=== PATIENT | male | born 1965 | race Caucasian/White ===

== ENCOUNTER 2018-09-24 08:25 | Outpatient (REF) | payer OTHER, SELFPAY ==
[2018-09-24 12:57] LABS: ALT 32 U/L (12-78); AST 23 U/L (15-37); Albumin 4.1 g/dL (3.4-5.0); Alkaline Phosphatase 50 U/L (46-116); Anion Gap 10.4 mmol/L (3-11); BUN 9 mg/dL (7-18); Bilirubin, Total 0.5 mg/dL (0.2-1.0); CO2 29.6 mmol/L (21.0-32.0); CREATININE 0.89 mg/dL (0.70-1.30); Calcium 9.6 mg/dL (8.5-10.1); Chloride 99 mmol/L (98-107); Cholesterol 266 mg/dL (50-200); Glucose 90 mg/dL (70-100); HDL Cholesterol 60 mg/dL (40-60); LDL CHOLESTEROL 176 mg/dL (<100); Potassium 4.3 mmol/L (3.5-5.1); Sodium 139 mmol/L (136-145); Total Protein 7.5 g/dL (6.4-8.2); Triglyceride 172 mg/dL (30-150)
[2018-09-24 13:01] LABS: COMMENT (LAB VIEW ONLY) 68.83 mg/dL; Microalb ug/mg Crea 405.1 ug/mg Cr
== END 2018-09-24 08:45 ==
LOC: NCHCN 08:25
PROVIDERS: PCP Internal Medicine; Visit Provider Family Medicine
DX: I10 Essential (primary) hypertension (principal); R80.9 Proteinuria, unspecified; Z13.220 Encounter for screening for lipoid disorders
CPT/HCPCS: 80053; 80061; 83721; 82043; 82570

== ENCOUNTER 2019-02-10 14:51 | Outpatient (CLI) | payer OTHER, SELFPAY ==
--- NOTE | 2019-02-10 14:44 | DI.RAD_ITS ---
SYMPTOMS/DIAGNOSIS: F/U FRACTURE RIGHT SHOULDER: A fracture of the greater tuberosity of the right humerus is demonstrated. No prior images were extant at the time of this interpretation.
== END 2019-02-10 15:11 ==
PROVIDERS: PCP Internal Medicine; Visit Provider Orthopaedic Surgery
DX: S42.251A Displaced fracture of greater tuberosity of right humerus, initial encounter for closed fracture (principal)
CPT/HCPCS: 73030

== ENCOUNTER 2019-02-24 14:47 | Outpatient (CLI) | payer OTHER, SELFPAY ==
--- NOTE | 2019-02-24 14:43 | DI.RAD_ITS ---
SYMPTOMS/DIAGNOSIS: F/U FRACTURE RIGHT SHOULDER: Two views were obtained and show a previously described fracture of the greater tuberosity of the humerus with no gross interval change in alignment of the fracture fragments in comparison with examination of February 10.
== END 2019-02-24 15:07 ==
PROVIDERS: PCP Internal Medicine; Visit Provider Orthopaedic Surgery
DX: S42.91XD Fracture of right shoulder girdle, part unspecified, subsequent encounter for fracture with routine healing (principal)
CPT/HCPCS: 73030

== ENCOUNTER 2020-05-11 17:39 | Outpatient (REF) | payer OTHER, SELFPAY ==
[2020-05-11 21:39] LABS: ALT 74 U/L (16-63); AST 48 U/L (15-37); Albumin 4.4 g/dL (3.4-5.0); Alkaline Phosphatase 76 U/L (46-116); Anion Gap 7.5 mmol/L (3-11); BUN 14 mg/dL (7-18); Bilirubin, Total 0.6 mg/dL (0.2-1.0); CO2 29.5 mmol/L (21.0-32.0); CREATININE 0.99 mg/dL (0.70-1.30); Calcium 9.9 mg/dL (8.5-10.1); Chloride 99 mmol/L (98-107); Glucose 167 mg/dL (74-106); Potassium 4.5 mmol/L (3.5-5.1); Sodium 136 mmol/L (136-145); Total Protein 7.5 g/dL (6.4-8.2)
[2020-05-11 22:15] LABS: PROTEIN 94.8 mg/dL
[2020-05-11 22:16] LABS: COMMENT (LAB VIEW ONLY) 102.37 mg/dL; Prot/Crea Ur Ratio 0.92
== END 2020-05-11 17:59 ==
LOC: NCHCN 17:39
PROVIDERS: PCP Internal Medicine; Visit Provider Family Medicine
DX: R80.9 Proteinuria, unspecified (principal)
CPT/HCPCS: 80053; 82565; 84156

== ENCOUNTER 2020-06-26 07:43 | Outpatient (CLI) | payer OTHER, SELFPAY ==
[2020-06-27 14:37] LABS: COVID-19 RT-PCR Result NEGATIVE (Negative)
== END 2020-06-26 08:03 ==
PROVIDERS: PCP Family Medicine; Visit Provider Surgery
DX: Z01.818 Encounter for other preprocedural examination (principal)
CPT/HCPCS: U0003

== ENCOUNTER 2020-06-29 06:17 | Day surgery (SDC) | payer OTHER, SELFPAY ==
[2020-06-29 06:31] VITALS: BP 150/86; PULSE 66; RESP 16; TEMP 36.4; O2SAT 100
[2020-06-29] MEDS: Lactated Ringers 1,000 ML 80 ML IV (06:50)
--- NOTE | 2020-06-29 07:16 | W.PM.DSUDISC ---
Discharge Plan Disposition Patient Disposition: HOME Condition: Good Discharge Details Reason For Visit: Colonoscopy with polypectomy Attending Provider: Tiffanie Falcon Primary Care Provider: Kelle Rojo Home Meds and New Rx's Prescriptions: Continued albuterol sulfate 0.63 MG/3 ML solution for nebulization 0.63 mg Inhalation PRN RF: 0 lisinopril 10 MG tablet 10 mg PO DAILY RF: 0 Discontinued polyethylene glycol 3350 17 gram/dose powder 238 g PO ONCE Qty: 238 RF: 0 bisacodyl [Dulcolax (bisacodyl)] 5 mg tablet,delayed release (DR/EC) 5 mg PO ONCE Qty: 4 RF: 0 Discharge Instructions Additional Instructions: Findings: A large polyp was removed from the sigmoid colon. My office will contact you with biopsy results. Follow up: Plan for a follow up colonoscopy in 3-5 years depending on biopsy results. Please call if you develop: fevers >101.5 Nausea or Vomiting Abdominal pain that is not transient Bleeding DAY SURGERY UNIT POST COLONOSCOPY INSTRUCTIONS 1. Because there will be medication in your system for the next 24 hours, you may feel a little sleepy. Your coordination will be affected. Therefore: a. Do not drive or operate dangerous equipment for 24 hours. b. Do not drink alcohol beverages for 24 hours (not even beer). c. Plan to go home and rest for the day. 2. Generally there are no restrictions on your activity after a day or so has gone by, but you may feel a bit fatigued for a few days. 3 After you arrive home you may have a light meal and return to a normal diet as you can tolerate it without feeling sick to your stomach. 4. After surgery, you may feel pain or discomfort. This should be only transient, but if it persists please contact your doctor. 5. If there are any questions regarding the findings of your procedure, please feel free to contact your doctor. 6. If you are unable to contact your doctor with a problem, contact the hospital at [phone]. 7. Continue all your regular medications unless directed otherwise. I understand the above instructions and have no questions. Signature of Patient or Responsible Adult Escort Date/Time Name of Responsible Adult Escort Signature of Nurse Date/Time Activity:: Activity as Tolerated Diet:: As Tolerated Discharge Orders Discharge Orders: Discharge Order (Routine); Ordered 06/29/20 Ordered By: Tiffanie Falcon DS: Diagnosis Discharge Diagnosis (1) Colon polyps: Status: Acute
--- NOTE | 2020-06-29 07:17 | W.COLOREPORT ---
Date of service: 06/29/20 Time of Service: 08:00 Colonoscopy Report Date of procedure: 06/29/20 Pre-op diagnosis general: Screening Post-op diagnosis procedure note: other (Colon polyps) Procedure: Colonoscopy with snare polypectomy Surgeon: Tiffanie Falcon Anesthesia proc note operative: MAC Indications: This 54 year old man presents for his first screening colonoscopy. He has no symptoms or FH colon cancer. Procedure Description: The patient was placed in the left German position. Propofol was titrated to sedation. Digital rectal examination revealed no abnormalities. The scope was advanced to the cecum without difficulty. The ileocecal valve and appendiceal orifice were clearly identified. The prep was good. The scope was slowly withdrawn over the course of greater than 6 minutes with no abnormalities seen in the ascending, transverse, descending colon. In the sigmoid colon at 30 cm a greater than 1cm polyp on a thick, short stalk was removed with hot snare polypectomy. A hemostatic clip was applied to the stalk as a precaution. In the rectum a hyperplastic appearing polyp was removed with the snare but not retrieved for pathology. The rectum was normal on retroflexed view. The patient tolerated the procedure well and was stable to recovery. Plan for routine colonoscopy in 3-5 years depending on biopsy results.
--- NOTE | 2020-06-29 07:44 | BOWEL_PTH ---
PATIENT: Brice Harry LOC: [facility] U#:[id number] AGE/SX: 54/M ROOM: RE06/29/[address]: Tiffanie Falcon MD : 1965 BED: DIS: 06/29/2020 SPEC #: [id number] RECD: 06/29/20 10:29 STATUS: KAMRON REQ #: [id number] MARGUERITE: 06/29/20 07:[address]: Tiffanie Falcon DEPT: Surgical Specimen RECD BY: Neelam Grey ENTERED: 06/29/20 10:32 SP TYPE: Bowel OTHR DR: Kelle Rojo Tissues: 1 - BOWEL RESECTION(OTHER) Procedures: GROSS AND MICRO LEVEL 4 Comments: [id number]
[2020-06-29 08:16] VITALS: BP 121/75; PULSE 62; RESP 18; TEMP 36.2; O2SAT 100
== END 2020-06-29 08:38 | disposition home or self-care (01) ==
PROVIDERS: PCP Family Medicine; Visit Provider Surgery
PROC: 0DJD8ZZ Inspection of Lower Intestinal Tract, Via Natural or Artificial Opening Endoscopic (ICD-10-PCS; CPT 45378; principal; 2020-06-29 07:30)
DX: Z12.11 Encounter for screening for malignant neoplasm of colon (principal); D12.5 Benign neoplasm of sigmoid colon; K62.1 Rectal polyp; I10 Essential (primary) hypertension
CPT/HCPCS: 45385; 88305; 88307; J2704

== ENCOUNTER 2021-10-13 12:11 | Emergency (ER) | payer OTHER, SELFPAY ==
--- NOTE | 2021-10-13 12:15 | DI.RAD_ITS ---
Exam(s) XR FOOT LT COMPLETE EXAM: XR FOOT LT COMPLETE CLINICAL HISTORY: Great toe soccer injury. TECHNIQUE: 2D digital imaging was performed. COMPARISON: No exams were available for comparison FINDINGS: Three views reveal no evidence of acute fracture nor diastasis of the Lisfranc joint. Advanced degen erative changes are noted at the great toe metatarsophalangeal joint. Other MTP joints appear unrema rkable. Moderate degenerative changes are noted at the interphalangeal joint of the great toe. Ther e is a 3 x 3 millimeter exostoses off the lateral aspect of the middle phalanx of the 2nd toe. Simil ar finding also seen off the lateral aspect of the distal phalanx of the 4th toe. No osseous tarsal coalition. No erosions nor osseous lesions. IMPRESSION: Degenerative changes in the 1st metatarsophalangeal joint as well as the interphalangeal joint of the great toe. Lateral benign small exostoses are noted off the middle phalanx of the 2nd toe and distal phalanx of the 4th toe as described above. No fracture evident. DATA REPOSITORY: RADIATION DOSE DELIVERED:
[2021-10-13 12:21] VITALS: BP 159/78; PULSE 46; RESP 16; TEMP 36.4; O2SAT 96
--- NOTE | 2021-10-13 12:30 | W.ED.GENAD ---
Discharge Plan Disposition Patient Disposition: HOME Condition: Stable Discharge Details Clinical Impression: Injury of toe on left foot Primary Care Provider: Kelle Rojo ED Provider: Horace Kat Home Meds and New Rx's Prescriptions: Continued albuterol sulfate 0.63 MG/3 ML solution for nebulization 0.63 mg Inhalation PRN RF: 0 lisinopril 10 MG tablet 10 mg PO DAILY RF: 0 Discharge Instructions Additional Instructions: X-ray reveals degenerative changes of your great toe but no evidence of acute fracture. Wear postop shoe as needed, advance activity as tolerated. [id number] Tylenol and/or Motrin as directed for discomfort. Rest, elevate, cool and/or warm compresses every 2 hours for 20 minutes. If symptoms are to persist I do recommend reaching out your primary care provider to discuss outpatient reevaluation Medical Decision Making 56-year-old gentleman presents with a left toe injury he sustained last week. Clinically diffuse mild swelling and discomfort but no obvious deformity. Will obtain x-ray X-ray reveals degenerative changes but no acute fracture Discussed x-ray findings with patient. Discussed conservative measures of [id number] Tylenol and/or Motrin and will place into a postop shoe. We discussed resting, elevating, cool compresses. If conservative measures not helping will follow up with his primary care provider next week. This documentation was generated using [employer] dictation system, please disregard any oddities of phrase or misspellings. Standard discharge and return precautions Medical Records Medical records reviewed: Yes I reviewed the patient's medical records. HPI General Mode of arrival: ambulatory. Date/Time Provider Initiated Documentation: 10/13/21 12:12. Limitations to Documentation: no limitations. Information obtained by: patient. HPI Narrative: This is a 56-year-old gentleman, past medical history of hypertension, presenting to the ER for evaluation of a left great toe injury. Patient states that last week while playing soccer he accidentally kicked another player. Had some discomfort at the time but was able to play for a few more minutes. Upon waking the next day he had increased pain, now severe with ambulation or bearing weight. Denies any other injury, numbness, tingling, weakness. No additional concerns or complaints at this time. Has not taken any medications for his symptoms Related Data Home Medications Medication Instructions Recorded Confirmed albuterol sulfate 0.63 mg INHALATION PRN 04/06/17 10/13/21 lisinopril 10 mg PO DAILY tab-cap 04/06/17 10/13/21 Allergies Allergy/AdvReac Type Severity Reaction Status Date / Time No Known Allergies Allergy Unverified 10/13/21 12:24 cats Allergy Uncoded 10/13/21 12:24 General Stated Complaint: Orthopedic FLOWER: 4 Review of Systems Constitutional Constitutional: Denies weakness Musculoskeletal Musculoskeletal: Denies deformity, Reports arthralgias, Denies numbness, Reports stiffness and Denies tingling Integumentary/Breasts Skin/Breast: Denies rash Neurologic Neurologic: Denies numbness, Denies tingling and Denies weakness PFS Active Problem List Tubulovillous adenoma (Acute ~06/2020) Colon polyps (Acute) Fracture of right shoulder girdle with routine healing (Acute) Medical History Allergy to cats HTN (hypertension) Surgical History Nasal fracture repair Vasectomy Family History Mother Achalasia Father Essential hypertension Social History Smoking/Tobacco Use Status: Never Smoking risk assessment performed?: Yes Alcohol Intake: current Alcohol Intake frequency: 3 or more drinks per day Alcohol type: wine and hard liquor Drug use: Rarely Substance use type: marijuana Do you feel safe at home: Yes Do you feel safe in your relationship?: Yes Exam Const General: cooperative, healthy appearing, comfortable and no acute distress Orientation: alert and awake [facility] Head: normal to inspection, normocephalic and atraumatic Eyes General: appearance normal, both eyes and all related structures Conjunctivae: conjunctivae normal Neck Neck: normal visual inspection, trachea midline and supple Resp Effort & Inspection: normal respiratory effort and able to speak in complete sentences Cardio Rate: regular rate Rhythm: regular rhythm Skin General skin exam: no rashes or lesions noted Neuro General: patient alert, patient awake, moves all extremities and no focal motor deficits Cognition: normal cognition Speech: speech normal Gait: antalgic Sensory Exam: no sensory deficits noted Extrem General: full ROM and capillary refill normal Ankle/foot/toe images: 1. Diffuse mild discomfort and swelling. Skin is intact. No erythema or ecchymosis. Normal capillary refill and dorsalis pedal pulse Psych Appearance: grossly normal Mental Status: mental status grossly normal Course Vital Signs Vital signs: Vital Signs Temperature 36.4 C L 10/13/21 12:21 Pulse 46 L 10/13/21 12:21 Respiratory Rate 16 10/13/21 12:21 Blood Pressure 159/78 H 10/13/21 12:21 Pulse Oximetry 96 10/13/21 12:21 Temperature 36.4 C L 10/13/21 12:21 Temperature Source Temporal Artery Scan 10/13/21 12:21 Pulse 46 L 10/13/21 12:21 Respiratory Rate 16 10/13/21 12:21 Blood Pressure 159/78 H 10/13/21 12:21 Blood Pressure Position Sitting 10/13/21 12:21 Pulse Oximetry 96 10/13/21 12:21 Oxygen Delivery Method Room Air 10/13/21 12:21 Oxygen Flow Rate 0 10/13/21 12:21 Pain Level 5 10/13/21 12:21
--- NOTE | 2021-10-13 13:20 | DI.VRAD_ITS ---
PROCEDURE INFORMATION: Exam: XR Left Foot Exam date and time: 10/13/2021 12:25 PM Age: 56 years old Clinical indication: Injury or trauma; Other: Great toe soccer injury; Blunt trauma; Foot; Left TECHNIQUE: Imaging protocol: XR Left foot. Views: 3 or more views. COMPARISON: No relevant prior studies available. FINDINGS: Bones/joints: Degenerative changes in the 1st metatarsal-phalangeal joint and IP joint.. There is no evidence of acute fracture.There is no evidence of malalignment or dislocation. Soft tissues: Normal. IMPRESSION: 1. Degenerative changes in the 1st metatarsal-phalangeal joint and IP joint.. 2. There is no evidence of acute fracture.There is no evidence of malalignment or dislocation. Dictated and Authenticated by: Wally Pérez MD. Ordering:RASHMI Vu MD
== END 2021-10-13 13:50 | disposition home or self-care (01) ==
PROVIDERS: Emergency Provider Physician Assistant; PCP Family Medicine
DX: S99.822A Other specified injuries of left foot, initial encounter (principal); Y93.66 Activity, soccer; W22.8XXA Striking against or struck by other objects, initial encounter
CPT/HCPCS: 99283; 73630

== ENCOUNTER 2022-07-30 21:28 | Outpatient (REF) | payer OTHER, SELFPAY ==
[2022-07-30 19:53] LABS: Anion Gap 10.6 mmol/L (3-11); BUN 12 mg/dL (7-18); CO2 26.4 mmol/L (21.0-32.0); Calcium 9.6 mg/dL (8.5-10.1); Chloride 100 mmol/L (98-107); Estimated GFR 88.88 (mL/min/1.73m2); Glucose 83 mg/dL (74-106); Potassium 4.4 mmol/L (3.5-5.1); Sodium 137 mmol/L (136-145); Uric Acid 8.1 mg/dL (3.5-7.2)
[2022-07-30 20:04] LABS: Abs Immature Grans 0.01 10^3/uL (0.0-0.06); Absolute Basophil Count 0.05 10^3/uL (0.0-0.2); Absolute Eosinophil Count 0.14 10^3/uL (0.0-0.7); Absolute Lymphocyte Count 1.39 10^3/uL (1.2-3.4); Absolute Monocyte Count 0.56 10^3/uL (0.1-0.8); Absolute Neutrophil Count 4.07 10^3/uL (1.2-6.7); Basophils % 0.8; Eosinophils % 2.3; HCT 46.1 % (40.0-50.0); Immature Grans % 0.2; Lymphocytes % 22.3; MCHC 34.7 % (32.0-36.0); MCV 101 fL (80-95); MPV 10.2 fL (8.0-11.0); Neutrophils % 65.4; Platelet Count 241 10^3/uL (130-400); RBC 4.57 10^6/uL (4.36-5.78); RDW 11.5 % (11.8-14.1); WBC 6.22 10^3/uL (4.4-10.8)
== END 2022-07-30 21:29 | disposition home or self-care (01) ==
LOC: NCHCN 21:28
PROVIDERS: PCP Family Medicine; Visit Provider Family Medicine
DX: I10 Essential (primary) hypertension (principal); M25.59 Pain in other specified joint
CPT/HCPCS: 80048; 84550; 85025

== ENCOUNTER → 2022-08-18 02:47 | Outpatient (CLI) | payer OTHER, SELFPAY ==
--- NOTE | 2022-08-18 | DI.RAD_ITS ---
Exam(s) XR FOOT RT COMPLETE EXAM: XR FOOT RT COMPLETE CLINICAL HISTORY: ARTHRALGIAS,M25.50. TECHNIQUE: 2D digital imaging was performed. Three views. COMPARISON: CR,XR XR FOOT LT COMPLETE from 10/13/2021 FINDINGS: BONES: No acute fracture is present. No bony destructive lesion is seen. Ossicle adjacent to lateral aspect of calcaneus. JOINTS: No dislocation present. Mild degenerative changes 1st MTP joint. SOFT TISSUE: Normal. IMPRESSION: Mild degenerative changes 1st MTP joint. DATA REPOSITORY: RADIATION DOSE DELIVERED:
== END ==
PROVIDERS: PCP Family Medicine; Visit Provider Family Medicine
DX: M25.571 Pain in right ankle and joints of right foot (principal); M19.071 Primary osteoarthritis, right ankle and foot
CPT/HCPCS: 73630

== ENCOUNTER 2022-10-07 13:25 | Emergency (ER) | payer OTHER, SELFPAY ==
[2022-10-07 13:29] VITALS: BP 169/77; PULSE 46; RESP 18; TEMP 36.8; O2SAT 97
--- NOTE | 2022-10-07 14:02 | ED.GENADUL_ITS ---
Discharge Plan Disposition Patient Disposition: Home Condition: Improving Discharge Details Clinical Impression: Acute lumbar myofascial strain Primary Care Provider: Kelle Rojo ED Provider: Ludwig Toro Home Meds and New Rx's Prescriptions: New methocarbamol 750 mg tablet 750 mg PO TID PRNQty: 20 0RF diazepam [Valium] 2 mg tablet 2 mg PO QHS PRN (Reason: muscle spasm) Qty: 5 0RF Continued albuterol 90 mcg/actuation aerosol inhalation lisinopril 10 MG tablet 10 mg PO DAILY Discharge Instructions Instructions: Muscle Strain (ED) Additional Instructions: May apply heat to area to increase blood flow to area. May apply ice to reduce discomfort and may alternate the 2 modalities. Liberally hydrate with small, frequent sips of fluids. May gently massage or foam roll area. Tylenol and ibuprofen as needed for pain. I recommend he take 600 mg of ibuprofen every 8 hours for the next 2 to 3 days time. Take this medication with food. Remove Lidoderm patch in 12 hours time, further patches are available [id number]. May use methocarbamol 750 to 1500 mg every 6-8 hours during the daytime as needed for discomfort. May use Valium 2 mg at bedtime for comfort and muscle relaxation. No driving, working with heavy equipment, or use of alcohol with this medication. Return if you develop a rash, bloody urine, or any other acute concern. Stand Alone Forms: Physical Therapy Referral Medical Decision Making This is a 57-year-old male who felt a tweak in his back while twisting and moving large pieces of wood this morning. This afternoon he felt increased right lower lumbar paraspinous pain that improved with movement and warming it up. He has reproducible spasm in the right lumbar region, likely quadratus lumborum strain. Discussed with him applying Lidoderm patch, [id number] muscle relaxants and referral to physical therapy. He will liberally hydrate at home. He return for any acute concern. Sign Out No HPI General Mode of arrival: ambulatory . Date/Time Provider Initiated Documentation: 10/07/22 13:48 . Limitations to Documentation: no limitations . Information obtained by: patient . History of Present Illness 57 year old M presents to the emergency department with the chief complaint of Right low back pain, described as moderate, Quality is described as dull and constant, and is localized to the back and right. Patient reports no radiation. Patient started experiencing this hour(s) and it has been constant. Rest improves symptom(s), Movement worsens symptoms . Patient notes no other symptoms.. Patient did receive the following treatments prior to arrival, other (Ibuprofen and back brace) Related Data Home Medications Medication Instructions Recorded Confirmed lisinopril 10 mg tablet 10 mg PO DAILY 04/06/17 10/07/22 albuterol 90 mcg/actuation aerosol mcg inhalation 07/31/22 08/04/22 inhaler diazepam 2 mg tablet (Valium) 2 mg PO QHS PRN muscle spasm #5 10/07/22 tabs methocarbamol 750 mg tablet 750 mg PO TID PRN #20 tabs 10/07/22 Previous Rx's Medication Instructions Recorded diazepam 2 mg tablet (Valium) 2 mg PO QHS PRN muscle spasm #5 10/07/22 tabs methocarbamol 750 mg tablet 750 mg PO TID PRN #20 tabs 10/07/22 Allergies Allergy/AdvReac Type Severity Reaction Status Date / Time No Known Allergies Allergy Unverified 07/31/22 15:27 cats Allergy Uncoded 10/07/22 13:32 General Stated Complaint: Nk/Back Pain FLOWER: 4 Review of Systems Narrative: No trouble with urination, no chest pain. Worse with movement. 6 systems were reviewed and otherwise negative PFSH All Active Problems (Updated 10/07/22 @ 14:05 by Ludwig Toro MD) Acute lumbar myofascial strain (Acute) Hallux rigidus (Acute) Injury of toe on left foot (Acute) Tubulovillous adenoma (Acute ~06/2020) 06/2020, Dr. Davion Falcon, Repeat colo 3 years Colon polyps (Acute) Fracture of right shoulder girdle with routine healing (Acute) Medical History Allergy to cats HTN (hypertension) Surgical History Nasal fracture repair Vasectomy Family History Mother Achalasia Father Essential hypertension Social History Smoking/Tobacco Use Status: Never Smoking risk assessment performed?: Yes Alcohol Intake: current Alcohol Intake frequency: 3 or more drinks per day Alcohol type: wine and hard liquor Drug use: Occasionally Substance use type: marijuana Do you feel safe at home: Yes Do you feel safe in your relationship?: Yes Exam Narrative Exam Narrative: GEN: awake, alert, oriented 3. Pleasant, well groomed, interactive. HEAD: Normocephalic, atraumatic ENT: Mucous membranes moist, oropharynx unremarkable, External ear exam unremarkable EYES: PERRL, EOMI NECK: Full ROM, no MARLON, no menigismus CHEST/RESP: No respiratory distress. Back: Right lower lumbar paraspinous muscular spasm and tenderness present. No midline tenderness step-off or deformity. EXT: Full ROM, no edema, no rash. Normal motor function and normal sensation throughout the lower extremity Neuro: Grossly normal neurologic exam, conversant, interactive. Psych: Speech fluent, thoughts congruent, affect normal Course Vital Signs Vital signs: Vital Signs Temperature 36.8 C 10/07/22 13:29 Pulse 46 L 10/07/22 13:29 Respiratory Rate 18 10/07/22 13:29 Blood Pressure 169/77 H 10/07/22 13:29 Pulse Oximetry 97 10/07/22 13:29 Temperature 36.8 C 10/07/22 13:29 Temperature Source Temporal Artery Scan 10/07/22 13:29 Pulse 46 L 10/07/22 13:29 Respiratory Rate 18 10/07/22 13:29 Respiratory Effort Non-Labored 10/07/22 13:33 Blood Pressure 169/77 H 10/07/22 13:29 Blood Pressure Position Sitting 10/07/22 13:29 Pulse Oximetry 97 10/07/22 13:29 Oxygen Delivery Method Room Air 10/07/22 13:29 Oxygen Flow Rate 0 10/07/22 13:29 PAWSS Have you Been Recently Intoxicated or Drunk Within the Last 30 days?: No Have you Ever Experienced Previous Episodes of Alcohol Withdrawal?: No Have you ever Experienced Withdrawal Seizures?: No Have you ever Experienced Delirium Tremens(DT)s?: No Have you ever undergone Alcohol Rehabilitation Treatment (i.e, inpt ot outpatient treatment programs)?: No Have you ever Experienced Blackouts?: No Have you ever Combined Alcohol with other Downers within the last 90 days?: No Have you ever Combined Alcohol with any other Substance of Abuse during the last 90 days?: No Positive Blood Alcohol level on Presentation? [PCS.BAL]: No Evidence of Increased Autonomic Activity (i.e. HR>120, tremor, sweating, agitation, nausea)?: No Result: 0
[2022-10-07] MEDS: Lidocaine 5% Patch 1 PATCH TP (14:19)
== END 2022-10-07 14:21 | disposition home or self-care (01) ==
PROVIDERS: Emergency Provider Emergency Medicine; PCP Family Medicine
DX: S39.012A Strain of muscle, fascia and tendon of lower back, initial encounter (principal); X50.1XXA Overexertion from prolonged static or awkward postures, initial encounter
CPT/HCPCS: 99283

== ENCOUNTER 2025-07-14 00:50 | Outpatient (CLI) | payer OTHER, SELFPAY ==
--- NOTE | 2025-07-14 | DI.RAD_ITS ---
Exam(s) XR FOOT RT COMPLETE EXAM: XR FOOT RT COMPLETE CLINICAL HISTORY: CHRONIC GOUT,M1a.[id number]. TECHNIQUE: 2D digital imaging was performed. COMPARISON: CR XR FOOT RT COMPLETE from 08/18/2022 FINDINGS: Four views No evidence of acute fracture or diastasis of the Lisfranc joint. There are minimal degenerative changes in the great toe metatarsophalangeal joint. Bone density normal. No osseous lesions. No inferior calcaneal spur. Tiny enthesophyte noted on the posterior calcaneus Achilles insertion site, unchanged from 2021. IMPRESSION: No new significant osseous findings in the right foot. DATA REPOSITORY: RADIATION DOSE DELIVERED:
--- NOTE | 2025-07-14 | DI.RAD_ITS ---
Exam(s) XR KNEE RT 3V AP,LAT,JOSE EXAM: XR KNEE RT 3V AP,LAT,JOSE CLINICAL HISTORY: RT KNEE PAIN,M25.561. TECHNIQUE: 2D digital imaging was performed. COMPARISON: No exams were available for comparison FINDINGS: 3 views No evidence of acute fracture nor obvious joint effusion. There are mild degenerative changes in the medial compartment with mild joint space narrowing and tiny marginal osteophytes. Lateral compartment exhibits normal height. There is in Ts 0 fight seen off the anterosuperior aspect of patella quadriceps insertion site. On the medial aspect of the knee there is a corticated osteophytic density measuring approximately 8 x 4 mm which is immediately adjacent to the outer aspect of the medial femoral condyle, probably in the middle E related to the medial collateral ligament. This does not have the appearance of an acute fracture fragment. It may be related to remote cord now corticated fragment or loose body which has migrated to this level. There are no other calcified loose bodies. Some calcification is noted posteriorly in the popliteal artery. IMPRESSION: Some degenerative change in the medial compartment. There is an 8 x 4 mm corticated calcific density off the medial aspect of the knee in the region of the medial collateral ligament adjacent to the outer aspect of the medial femoral condyle. DATA REPOSITORY: RADIATION DOSE DELIVERED:
== END 2025-07-14 01:10 ==
PROVIDERS: PCP Family Medicine; Visit Provider Family Medicine
DX: M25.561 Pain in right knee (principal); M1A.9XX1 Chronic gout, unspecified, with tophus (tophi)
CPT/HCPCS: 73562; 73630

== ENCOUNTER → 2025-11-14 12:40 | Outpatient (CLI) | payer OTHER, SELFPAY ==
--- NOTE | 2025-11-14 07:45 | DI.MRI_ITS ---
Exam(s) MR LOWER JOINT RT WO EXAM: MR LOWER JOINT RT WO CLINICAL HISTORY: PAIN M76.51 PATELLAR TENDINITIS RT KNEE. TECHNIQUE: Multiplanar multisequence MRI was performed. COMPARISON: CR XR KNEE RT 3V AP,LAT,JOSE from 07/14/2025 FINDINGS: BONES: There is no fracture or contusion pattern. JOINTS: A minimal joint effusion is present. Articular cartilage: Patellofemoral joint: There is irregularity and a small linear defect in the medial facet patellar facet, just medial to the apex. Medial femoral tibial joint: There is cartilage thinning over the medial femoral condyle posteriorly. Lateral femoral tibial joint: Articular cartilage is unremarkable. LIGAMENTS/TENDONS: Anterior Cruciate: Unremarkable. Posterior Cruciate: Unremarkable. Medial Collateral:There is a calcification within or adjacent to the ligament lateral to the femoral condyle. Lateral Collateral ligament complex: Unremarkable. Extensor mechanism: There is an enthesophyte at the upper pole of the patella, at the quadriceps insertion. The patellar tendon appears normal. Medial retinaculum: Unremarkable. Lateral retinaculum: Unremarkable. Popliteus: Unremarkable. MENISCI: The medial meniscus is unremarkable. The lateral meniscus is unremarkable. MUSCLES: Unremarkable. SOFT TISSUES: Mild venous varicosities. 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 Cartilage thinning of the medial femoral condyle. No evidence of ligament or meniscal tear. The patellar tendon appears normal. DATA REPOSITORY:
== END ==
LOC: DI 12:40
PROVIDERS: PCP Family Medicine; Visit Provider Student in an Organized Health Care Education/Training Program
DX: M76.51 Patellar tendinitis, right knee (principal); M22.41 Chondromalacia patellae, right knee
CPT/HCPCS: 73721